=== PATIENT | male | born 1970 ===

== ENCOUNTER 2024-06-16 07:46 | Day surgery (SDC) | payer OTHER, SELFPAY ==
--- NOTE | 2024-06-16 | PATH_ITS ---
[facility] Accession Number: [id number] No. of containers..01 Tissue . 01 Material submitted: . rectum - RECTAL POLYP . 01 Diagnosis: A. RECTAL, POLYPECTOMY: Hyperplastic polyp. [facility] 06/19/2024 1633 Local . 01 Electronically signed: . Akbar Dickinson MD, Pathologist NPI- [id number] . 01 Gross description: . RECTAL POLYP: Received in formalin is 1 fragment(s) of spencer, soft tissue measuring 0.4 x 0.3 x 0.3 cm submitted entirely in 1 cassette(s) /NAR[facility]ER 06/16/2024 2326 Local . 01 Pathologist provided ICD-10: Z12.11 . 01 CPT . 865710 Specimen Comment: A courtesy copy of this report has been sent to [facility] Pathology Performed at: [address] [facility] [id number] MD Mahin Hall MD Phone: [phone]
[2024-06-16 08:01] VITALS: BP 125/80; PULSE 74; RESP 16; TEMP 36.4; O2SAT 96; BMI 32.2
--- NOTE | 2024-06-16 08:54 | PM.HP.1 ---
History of Present Illness History of Present Illness Date Patient Seen: 06/16/24 Time Patient Seen: 08:54 Chief complaint: SDC Narrative: 53-year-old white male, family medical history only of prostate cancer in the father, no changes in bowel habits. No family history of Crohn's or ulcerative colitis. Has been living in the [facility] for several years. [facility] Medical History (Updated 06/16/24 @ 08:55 by Adrian Ansari MD) Colon cancer screening Social History household members: spouse Smoking Status: Current some day smoker Meds Home Medications and Allergies Allergies Allergy/AdvReac Type Severity Reaction Status Date / Time No Known Drug Allergies Allergy Verified 06/16/24 07:52 Review of Systems Review of Systems ROS: Yes All systems reviewed with the patient and are negative except as otherwise documented Exam Vital Signs (past 8 hours): - 06/16/24 08:01 Temperature 97.5 F L Pulse Rate 74 Respiratory Rate 16 Blood Pressure 125/80 Pulse Oximetry 96 Oxygen Delivery Method Room Air Oxygen Delivery Method Room Air Narrative Exam Narrative: Gen: NAD, sitting comfortably in bed, appears well HEENT: Sclera are anicteric, head is normocephalic and atraumatic, trachea is midline. CV: RRR, no JVD Resp: clear to auscultation bilaterally, equal chest wall movement bilaterally Abd: soft, nontender, normoactive bowel sounds Ext: no edema, full range of motion Neuro: Cranial nerves II-XII grossly intact, no focal deficits Skin: No erythema or ecchymosis Assessment & Plan Assessment and plan (1) Colon cancer screening: Status: Acute Assessment & Plan narrative: Patient presents for initial screening colonoscopy Risks, benefits, alternatives to colonoscopy explained, including but not limited to bowel perforation or other serious complication requiring surgery at less than 1 in 5000 colonoscopies, abdominal pain, cramping or bleeding and less than 1% of colonoscopies, and the chances that we find a diagnosis that would require further intervention of about 2%. Patient agrees to proceed. Time-Based Coding :: [TOTAL MINUTES] spent with patient and on the chart (including review of chart, obtaining history, exam, reviewing outside data, placing orders, documenting exam and treatment plan, and counseling patient) on [DATE].
--- NOTE | 2024-06-16 09:13 | PM.OP.COLON ---
Operative Date/Time/Diagnoses Date of procedure: 06/16/24 Time of procedure: 09:13 Pre-op diagnosis: Personal history of polyps Post-op diagnosis: same Procedure & Clinicians Study performed: Colonoscopy with cold snare polypectomy Same procedure as scheduled: Yes Indications: Personal history of polyps Surgeon: Adrian Ansari Procedure Notes SCOAP/Timeout: Performed Procedure in detail: Time-out was performed. Mac was induced. Patient was placed in left lateral decubitus position. The perineum was inspected without any gross abnormality. Lubricated pediatric colonoscope was inserted and advanced to the cecum. The terminal ileum was intubated. The colonoscope was withdrawn slowly inspecting the circumference of the colon. Very small polyps may have been missed, prep quality was adequate. A likely hyperplastic, benign-appearing polyp was removed in the rectum with cold snare polypectomy. It was retrieved. Retroflexed view of the rectum showed small, non prolapsed nonbleeding internal hemorrhoids. The scope was withdrawn the patient was taken to PACU in good condition. Scope withdrawal time: 7 Sedation minutes: 12 Findings: divertiulosis and polyp(s) Specimen(s): other (rectal polyp) Complications: none Impression: 1. Diverticulosis 2. Benign polyp Post-procedure Recommendations: Colonoscopy in 10 years Plan for aftercare: home Follow up: as needed Disposition: PACU
[2024-06-16 09:17] VITALS: BP 107/7; PULSE 74; RESP 14; TEMP 36.1; O2SAT 95
[2024-06-16 09:22] VITALS: BP 117/70; PULSE 67; RESP 17; O2SAT 93
[2024-06-16 09:27] VITALS: BP 120/67; PULSE 88; RESP 14; TEMP 36.8; O2SAT 97
[2024-06-16 09:38] VITALS: BP 129/88; PULSE 73; RESP 14; TEMP 36.2; O2SAT 97
== END 2024-06-16 09:39 | disposition home or self-care (01) ==
PROVIDERS: PCP Physician Assistant; Referring Provider Surgery; Visit Provider Surgery
PROC: 0DJD8ZZ Inspection of Lower Intestinal Tract, Via Natural or Artificial Opening Endoscopic (ICD-10-PCS; CPT 45378; principal; 2024-06-16 08:45)
DX: Z12.11 Encounter for screening for malignant neoplasm of colon (principal); Z86.0100 Personal history of colon polyps, unspecified; K57.30 Diverticulosis of large intestine without perforation or abscess without bleeding; K64.8 Other hemorrhoids
CPT/HCPCS: 45385; J2704